=== PATIENT | male | born 1985 | race Caucasian/White ===

== ENCOUNTER 2023-03-26 10:46 | Emergency (ER) | payer OTHER ==
[~2023-03-26] VITALS: Ht 175.3 cm; Wt 85.0 kg
[2023-03-26 11:08] VITALS: BP 131/79; PULSE 78; RESP 16; TEMP 97.8; O2SAT 97
[2023-03-26] MEDS ORDERED: proparacaine 0.5% ophthalmic drops 15ml EACHEYE ONE (12:55)
[2023-03-26] MEDS ORDERED: ERYT1OIN6 LEFTEYE (13:06)
== END 2023-03-26 13:18 | disposition home or self-care (01) ==
LOC: ER 10:47
DX: S05.02XA Injury of conjunctiva and corneal abrasion without foreign body, left eye, initial encounter (principal); X58.XXXA Exposure to other specified factors, initial encounter; Y93.89 Activity, other specified; Y92.89 Other specified places as the place of occurrence of the external cause; Y99.8 Other external cause status
CPT/HCPCS: 99283